=== PATIENT | male | born 1950 | race African-American/Black ===

== ENCOUNTER 2018-08-24 03:19 | Emergency (ER) | payer OTHER ==
[~2018-08-24] VITALS: Ht 182.9 cm; Wt 127.0 kg
[~2018-08-24 03:19] MED LIST: CALC0.25 PO; CEFP200T PO; DOXY100T PO; FLUC100T7 PO; LISI1TAB3 PO; POTA20TA4 PO
[2018-08-24 04:00] VITALS: BP 125/68
[2018-08-24] MEDS ORDERED: CYCL5TAB PO (04:19)
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
== END 2018-08-24 05:10 | disposition home or self-care (01) ==
LOC: ER 03:19
DX: M54.5 Low back pain (principal); M54.6 Pain in thoracic spine; I10 Essential (primary) hypertension; Z96.641 Presence of right artificial hip joint; V03.90XA Pedestrian on foot injured in collision with car, pick-up truck or van, unspecified whether traffic or nontraffic accident, initial encounter; Y93.89 Activity, other specified; Y92.89 Other specified places as the place of occurrence of the external cause; Y99.8 Other external cause status
CPT/HCPCS: 71046; 72100; 99284